=== PATIENT | female | born 1995 | race Caucasian/White ===

== ENCOUNTER 2020-11-22 17:31 | Emergency (ER) | payer MEDICAID, OTHER ==
[~2020-11-22] VITALS: Ht 167.6 cm; Wt 67.1 kg
[2020-11-22 17:36] VITALS: BP 120/76
--- NOTE | 2020-11-22 19:25 | NUR ---
Krishna lucio in ED - 11/22/20 at [email or web address] OSUNA AT [facility] EXAMINING PT
--- NOTE | 2020-11-22 19:26 | NUR ---
PT TAKEN TO BED 2
--- NOTE | 2020-11-22 19:29 | NUR ---
24 Y/O FEMALE C/O LT PINKY PAIN S/P LIFTING A HEAVY BOX WHILE AT WORK [id number] AGO. PT STATES THAT SWELLING HAS BEEN GETTING WORSE, AND PAIN IS AT A 7/10. SMALL DEFORMITY NOTED BASE ON FINGER, SWELLING PRESENT AT THIS TIME. PMH: DENIES NKA
--- NOTE | 2020-11-22 19:29 | NUR ---
DR OSUNA AT BEDSIDE EXAMINING PT
[2020-11-22 20:08] VITALS: BP 120/76
--- NOTE | 2020-11-22 20:08 | NUR ---
Patient discharged with v/s stable. Written and verbal after care instructions given and explained. Patient verbalized understanding. Ambulatory with steady gait. All questions addressed prior to discharge. Advised to follow up with PMD.
--- NOTE | 2020-11-22 20:11 | NUR ---
PLACED FINGER SPLINT ON PTS LEFT FIFTH DIDGET AND WRAP WITH COBAND, CHECKED [facility]MSC'S BRFORE AND AFTER WITHOUT INCIDENT.
== END 2020-11-22 20:08 | disposition home or self-care (01) ==
LOC: MED 17:31
DX: S62.307A Unspecified fracture of fifth metacarpal bone, left hand, initial encounter for closed fracture (principal); W17.89XA Other fall from one level to another, initial encounter; Y93.89 Activity, other specified; Y92.89 Other specified places as the place of occurrence of the external cause; Y99.8 Other external cause status
CPT/HCPCS: 73140; 99283

== ENCOUNTER 2021-04-06 10:51 | Emergency (ER) | payer OTHER ==
[~2021-04-06] VITALS: Ht 167.6 cm; Wt 62.6 kg
[2021-04-06 10:55] VITALS: BP 111/75
--- NOTE | 2021-04-06 11:03 | NUR ---
DARRYL. COLD COPRESSION.
--- NOTE | 2021-04-06 11:35 | NUR ---
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 PT DENIES ANY PAIN CURRENTLY BUT STATES SHE STARTS TO FEEL DISCOMFORT WHEN AMBULATING. PT ALSO HAS C/O LAKEISHA ARMS & THIGHS RASH S/P EATING SHRIMP X YESTERDAY. RASH IS CURRENTLY LIGHT PINK AND FOUND ON BILATERAL THIGHS PMH: DENIES NKA
[2021-04-06] MEDS ORDERED: IBUPROFEN 400 MG TAB PO ONE (12:05)
[2021-04-06] MEDS ORDERED: IBUP-2230 PO (12:13)
[2021-04-06] MEDS ORDERED: DIPH25TA53 PO (12:13)
[2021-04-06 12:30] VITALS: BP 111/75
--- NOTE | 2021-04-06 12:31 | NUR ---
Patient discharged with v/s stable. Written and verbal after care instructions given and explained. Patient alert, oriented and verbalized understanding of instructions. Ambulatory with steady gait. All questions addressed prior to discharge. ID band removed. Patient advised to follow up with PMD. Rx of IBUPROFEN AND BENADRYL given. Patient educated on indication of medication including possible reaction and side effects. Opportunity to ask questions provided and answered. PT HAS EQUAL CHEST RISE AND FALL UPON D/C
== END 2021-04-06 12:30 | disposition home or self-care (01) ==
LOC: MED 10:51
DX: S90.31XA Contusion of right foot, initial encounter (principal); L50.0 Allergic urticaria; Z79.899 Other long term (current) drug therapy; W50.0XXA Accidental hit or strike by another person, initial encounter; Y93.66 Activity, soccer; Y92.89 Other specified places as the place of occurrence of the external cause; Y99.8 Other external cause status
CPT/HCPCS: 73630; 99283

== ENCOUNTER 2021-04-09 09:42 | Emergency (ER) | payer OTHER ==
[~2021-04-09] VITALS: Ht 167.6 cm; Wt 62.6 kg
[~2021-04-09 09:42] MED LIST: DIPH25TA53 PO; IBUP-2230 PO
[2021-04-09 10:06] VITALS: BP 111/74
--- NOTE | 2021-04-09 10:20 | NUR ---
BIB SELF FOR RECHECK FOR RIGHT FOOT PAIN S/P ANOTHER PLAYER STEPPED ON RIGHT FOOT. SEEN HERE 04/06/21.
--- NOTE | 2021-04-09 14:45 | NUR ---
Patient being evaluated by DR CUELLAR at TRIAGE ROOM.
[2021-04-09 16:15] VITALS: BP 111/74
== END 2021-04-09 16:15 | disposition home or self-care (01) ==
LOC: MED 09:42
DX: M79.671 Pain in right foot (principal); X58.XXXA Exposure to other specified factors, initial encounter; Y93.89 Activity, other specified; Y92.89 Other specified places as the place of occurrence of the external cause; Y99.8 Other external cause status
CPT/HCPCS: 73630; 99283

== ENCOUNTER 2021-08-15 07:40 | Emergency (ER) | payer OTHER ==
[~2021-08-15] VITALS: Ht 167.6 cm; Wt 66.2 kg
[2021-08-15 07:45] VITALS: BP 117/81
[2021-08-15] MEDS ORDERED: ACETAMINOPHEN EXTRA STRENGTH 500 MG TAB PO ONE (07:50)
--- NOTE | 2021-08-15 07:50 | NUR ---
PT TO AWAIT IN LOBBY
--- NOTE | 2021-08-15 08:07 | NUR ---
PT AMBULATED TO BED 11
[2021-08-15] MEDS ORDERED: KETOROLAC 15 MG/ML VIAL IVP ONE (08:25)
[2021-08-15] MEDS ORDERED: NACL 0.9% 1,000 ML IV ONE (08:25)
--- NOTE | 2021-08-15 08:25 | NUR ---
25 Y/O FEMALE C/O RT SIDED FLANK PAIN X4 DAYS. PT STATED PAIN IS CURRENTLY 10/10 AND IS CRAMPING/BURNING LIKE PAIN. PT ADMITS TO EXPERICNING DYSURIA, DRIBBLING, AND HESITANCY WHEN URINATIING. PT ALSO HAS FEVER 100.3 IN TRIAGE. TOOK TYLENOL LAST NIGHT. PT CURRENTLY A&OX4, SKIN DRY AND INTACT, BUT WARM TO TOUCH. MEDHX: DENIES NKA
[2021-08-15] MEDS ORDERED: PHEN-1877 PO (09:16)
[2021-08-15] MEDS ORDERED: IBUP-2213 PO (09:16)
[2021-08-15] MEDS ORDERED: CIPR500T4 PO (09:16)
[2021-08-15 09:50] VITALS: BP 117/61
--- NOTE | 2021-08-15 09:50 | NUR ---
Patient discharged with v/s stable. Written and verbal after care instructions given and explained. Patient alert, oriented and verbalized understanding of instructions. Ambulatory with steady gait. All questions addressed prior to discharge. ID band removed. Patient advised to follow up with PMD. Rx of IBUPROFEN, CPIRO, AND PYRIDIUM given. Patient educated on indication of medication including possible reaction and side effects. Opportunity to ask questions provided and answered.
== END 2021-08-15 09:50 | disposition home or self-care (01) ==
LOC: MED 07:40
DX: N12 Tubulo-interstitial nephritis, not specified as acute or chronic (principal); Z79.899 Other long term (current) drug therapy
CPT/HCPCS: 81002; 81025; 96361; 96374; 99283; J1885; J7030